=== PATIENT | male | born 1990 | race Asian ===

== ENCOUNTER 2019-10-02 09:24 | Emergency (ER) | payer OTHER ==
[~2019-10-02] VITALS: Ht 170.2 cm; Wt 85.3 kg
[2019-10-02 09:33] VITALS: BP 140/62
--- NOTE | 2019-10-02 09:42 | NUR ---
ASSISTED PT TO WAIT IN THE LOBBY.
--- NOTE | 2019-10-02 10:14 | NUR ---
PT TAKEN TO ER BED 03
--- NOTE | 2019-10-02 10:15 | NUR ---
PT ARRIVED TO ED C/O PEIGASTRIC PAIN X TODAY THIS AM. DESCRIBES IT BURNING SENSATION. ABD IS ROUND AND SOFT AND TENDERNESS IN MIDEPIGASTRIC REGION. BS ACTIVE IN ALL QUADS. VSS. NO DISTRESS NOTED. PT STATE SHES BEEN UNDER ALOT OF STRESS WITH SCHOOL AND WORK AND HES BEEN SLEEPED DEPRRIVATED. DENIES ANY N,V,D, OR BLOOD IN THE VOMIT. HE DID SAY HE HAD ONE EPISODE OF BLOOD IN THE STOOL LAST WEEK. NO PMH. NKA.
[2019-10-02 11:08] VITALS: BP 140/62
--- NOTE | 2019-10-02 11:11 | NUR ---
Patient discharged with v/s stable. Written and verbal after care instructions given and explained. Patient alert, oriented and verbalized understanding of instructions. Ambulatory with steady gait. All questions addressed prior to discharge. ID band removed. Patient advised to follow up with PMD. Rx of SEROQUEL given. Patient educated on indication of medication including possible reaction and side effects. Opportunity to ask questions provided and answered.
== END 2019-10-02 11:11 | disposition home or self-care (01) ==
LOC: MED 09:24
DX: G47.00 Insomnia, unspecified (principal); R10.13 Epigastric pain
CPT/HCPCS: 99283